=== PATIENT | female | born 1940 | race Caucasian/White ===

== ENCOUNTER 2023-05-25 06:20 | Day surgery (SDC) | payer OTHER ==
[~2023-05-25] VITALS: Ht 167.6 cm; Wt 73.9 kg
[2023-05-25] MEDS ORDERED: ceFAZolin SODIUM 2 GM in D5W 50 ML IV ONE (07:00)
[2023-05-25] MEDS ORDERED: KETOROLAC TROMETHAMINE 30 MG VIAL ONE (07:46)
[2023-05-25] MEDS ORDERED: DEXAMETHASONE SOD PHOSPHATE 4 MG/ML VIAL ONE (07:46)
[2023-05-25] MEDS ORDERED: GLYCOPYRROLATE 0.2 MG/ML VIAL ONE (07:46)
[2023-05-25] MEDS ORDERED: MIDAZOLAM HCL 2 MG/2 ML VIAL (VERSED) ONE (07:46)
[2023-05-25] MEDS ORDERED: WATER FOR IRRIGATION,STERILE 1,000 ML IRRIG.SOLN IR ONE (07:46)
[2023-05-25] MEDS ORDERED: LR 1,000 ML IV.SOLN IV ONE (07:46)
[2023-05-25] MEDS ORDERED: fentaNYL CITRATE/PF 100 MCG/2 ML AMP ONE (07:46)
[2023-05-25] MEDS ORDERED: SEVOFLURANE 15 MIN GAS INH ONE (07:46)
[2023-05-25] MEDS ORDERED: BUPIVACAINE /PF 0.5% 30 ML VIAL ONE (07:46)
[2023-05-25] MEDS ORDERED: CLINDAMYCIN 2% VAGINAL CREAM VG ONE (07:46)
[2023-05-25] MEDS ORDERED: NS IRRIG SOLN 1000 ML IR ONE (07:46)
[2023-05-25] MEDS ORDERED: PROPOFOL 200MG/ 20ML VIAL (DIPRIVAN) IV ONE (07:46)
[2023-05-25] MEDS ORDERED: ONDANSETRON HCL 4 MG/2 ML VIAL ONE (07:46)
[2023-05-25] MEDS ORDERED: ACETAMINOPHEN I.V. 1000 MG 100 ML IV ONE (08:05)
[2023-05-25] MEDS ORDERED: MIDAZOLAM HCL 2 MG/2 ML VIAL (VERSED) IVP PRN (08:30)
[2023-05-25] MEDS ORDERED: LR 1,000 ML IV SCH (08:30)
[2023-05-25] MEDS ORDERED: MEPERIDINE HCL/PF 25 MG/ML DISP.SYRIN IVP PRN (08:30)
[2023-05-25] MEDS ORDERED: METOCLOPRAMIDE HCL 10 MG/2 ML VIAL IVP PRN (08:30)
[2023-05-25] MEDS ORDERED: HYDROmorphone 1 MG/ML INJ. CARTRIDGE IVP PRN ×2 (08:30)
[2023-05-25] MEDS ORDERED: ONDANSETRON HCL 4 MG/2 ML VIAL IVP PRN (09:15)
[2023-05-25] MEDS ORDERED: OXYCODONE/ACETAMINOPHEN 5-325 TABLET PO PRN ×2 (09:15)
[2023-05-25] MEDS ORDERED: HYDROcodone/ACETAMIN 5-325 MG TAB (NORCO/ VICODIN) PO PRN (09:15)
[2023-05-25] MEDS ORDERED: ATROPINE SULFATE 0.4 MG/ML VIAL ONE (09:53)
[2023-05-25] MEDS ORDERED: ATROPINE SULFATE 0.4 MG/ML VIAL IVP ONE ×2 (10:00→10:45)
[2023-05-25 12:57] VITALS: BP_SYST 103; PULSE 51; RESP 18; TEMP 97.8; O2SAT 99
== END 2023-05-25 11:58 | disposition home or self-care (01) ==
LOC: SDS 06:20 → SMU 06:21 → SDS 11:58
PROVIDERS: ATTEND Specialist
DX: N90.89 Other specified noninflammatory disorders of vulva and perineum (principal); N39.45 Continuous leakage; R10.2 Pelvic and perineal pain; Z90.710 Acquired absence of both cervix and uterus; Z96.651 Presence of right artificial knee joint; Z79.899 Other long term (current) drug therapy
CPT/HCPCS: 87081; 56620; 88305; J0461; J3490 ×2; J1100; J1885; J3465; J2405; J2704; J3010; J7060; J7120; J0131